=== PATIENT | female | born 1985 | race Caucasian/White ===

== ENCOUNTER 2018-04-28 00:46 | Inpatient (IN) | payer BC ==
[2018-04-28 01:25] VITALS: BMI 26.8
[2018-04-28] MEDS ORDERED: Penicillin G Potassium 5 MILL.UNITS VIAL ONE (01:44)
[2018-04-28] MEDS ORDERED: Promethazine HCl 25 MG/ML VIAL IM PRN ×2 (01:50→02:46)
[2018-04-28] MEDS ORDERED: Acetaminophen 500 MG TAB PO PRN (01:50)
[2018-04-28] MEDS ORDERED: Ondansetron HCl/PF 4 MG/2 ML Vial IVP PRN ×3 (01:50→10:24)
[2018-04-28] MEDS ORDERED: Butorphanol Tartrate 1 MG/ML VIAL SLOW IVP PRN (01:50)
[2018-04-28] MEDS: Lactated Ringer's 1,000 ML IV SCH ×2 (01:55→05:31)
[2018-04-28] MEDS ORDERED: Penicillin G Potassium 5 MILL.UNITS in Sodium Chloride 0.9% 100 ML IVPB SCH (02:00)
[2018-04-28] MEDS ORDERED: Methylergonovine 0.2 MG/ML VIAL IM PRN (02:00)
[2018-04-28] MEDS ORDERED: Carboprost 250 MCG/ML AMP IM PRN (02:00)
[2018-04-28] MEDS ORDERED: Ibuprofen 800 MG TAB PO PRN (02:00)
[2018-04-28] MEDS ORDERED: Lidocaine 1% (PF) 30 ML VIAL SC PRN (02:00)
[2018-04-28] MEDS ORDERED: NS w/ Oxytocin 10 units 500 ML IV SCH ×2 (02:00)
[2018-04-28] MEDS ORDERED: HYDROcodone/Acetaminophen 5/325 mg Tablet PO PRN (02:00)
[2018-04-28] MEDS ORDERED: Misoprostol 200 MCG TAB RC PRN (02:00)
[2018-04-28 02:19] LABS: Hemoglobin 13.1 g/dL (12.0-16.0); Mean Corpuscular HGB CONC 36.2 g/dL (32.0-36.0); Mean Corpuscular Hemoglobin 33.8 pg (27.0-31.0); Mean Corpuscular Volume 93.6 fL (78.0-98.0); Mean Platelet Volume 7.4 fL (7.4-10.4); Platelet Count 165 thou/uL (130-400); Red Blood Cell (RBC) Count 3.88 mill/uL (4.20-5.40); White Blood Cell (WBC) Count 9.5 thou/uL (4.8-10.8)
[2018-04-28] MEDS ORDERED: Lidocaine HCl/Epinephrine 5 ML AMPUL IJ ONE (02:28)
[2018-04-28] MEDS ORDERED: Lidocaine 1% (PF) 30 ML VIAL ONE (02:28)
[2018-04-28] MEDS ORDERED: Bupivacaine 0.5% 20 ML, fentaNYL Citrate/PF 400 MCG in Sodium Chloride 0.9% 72 ML EPIDURAL SCH (02:30)
[2018-04-28] MEDS ORDERED: DISCONTINUE ALL PREVIOUS NARCOTICS FS SCH (02:30)
[2018-04-28] MEDS ORDERED: Acetaminophen 325 MG TAB PO PRN (02:46)
[2018-04-28] MEDS ORDERED: diphenhydrAMINE 50 MG/ML VIAL IVP PRN (02:46)
[2018-04-28] MEDS ORDERED: Naloxone HCl 0.4 mg/ml Vial IVP PRN ×2 (02:46)
[2018-04-28] MEDS ORDERED: Lactated Ringer's 500 ML IV PRN (02:46)
[2018-04-28] MEDS ORDERED: ePHEDrine/0.9% NaCl/PF SYRINGE 50 mg/10 ml SLOW IVP PRN (02:46)
[2018-04-28] MEDS ORDERED: Eucerin (Mineral Oil/Petrolatum,White) 30 gm Jar TOP PRN (02:46)
[2018-04-28] MEDS ORDERED: fentaNYL Citrate/PF 400 MCG, Bupivacaine 0.5% 20 ML in Sodium Chloride 0.9% 72 ML EPIDURAL SCH (03:00)
[2018-04-28] MEDS ORDERED: Communication Order-Pharmacy FS SCH (03:00)
[2018-04-28 03:01] LABS: HBSAg Index 0.19 S/CO (0-0.99); HIV (1/2) Antibody/Antigen Non-Reactive (NonReactive); HIV 1/2 INDEX 0.06 S/CO (<1.00); Hep B Surf Ag Non-Reactive S/CO (NonReactive)
[2018-04-28 05:02] LABS: Syphilis Antibody Nonreactive (Nonreactive); Syphilis Antibody Index 0.06 S/CO (<1.00 Non-Reactive)
[2018-04-28] MEDS ORDERED: Penicillin G 2.5 MILL.units 50 ML ONE (05:27)
[2018-04-28] MEDS ORDERED: Penicillin G Potassium 2.5 MILL.UNITS in Sodium Chloride 0.9% 100 ML IVPB SCH (06:00)
[2018-04-28 06:02] LABS: Glucose 80 mg/dL (70-105)
[2018-04-28] MEDS: NS / Oxytocin 40 units/1000ml 1,000 ML IV SCH ×2 (08:05→10:04)
--- NOTE | 2018-04-28 09:50 | PDOC.LDHP ---
Labor and Delivery H&P Chief complaint: contractions HPI: 32yo at 39w1d c/o painful contractions. Current gestational age (weeks): 39 Due date: 05/04/18 Dating criteria: last menstrual period Grav: 2 Para: 1 Current complications: gestational diabetes (diet controlled) Abnormal US findings: No Past Medical History: h/o HSV on valtrex ppx Current medications: pre- vitamins, other (valtrex 500 bid) Previous surgical history: other (wisdom teeth) Allergies/Adverse Reactions: Allergies Allergy/AdvReac Type Severity Reaction Status Date / Time No Known Drug Allergies Allergy Verified 04/28/18 01:14 Social history: none - Physical Exam Vital signs reviewed and normal: yes General: NAD Heart: RRR Lungs: CTAB Abdomen: gravid Extremeties: no edema FHT: category 1 [place] contractions every: 3min - Vaginal Exam cm dilated: 10 Effacement: 100% Station: 2+ - OB Labs Blood type: A RH: positive Antibody Screen: negative HIV: negative RPR: negative HEPSAg: negative 1 hour GCT: positive 3 hour GTT: positive GBS: positive Urine drug screen: not done Rubella: immune - Assessment L&D Assessment: term patient in labor - Plan Plan: admit to L&D, labor augmentation if indicated, GBS antibiotic prophylaxis , informed consent obtained, anesthesia consult for pain management -: No HSV lesions on exam or prodromal sx.
--- NOTE | 2018-04-28 09:50 | PDOC.OPDEL ---
OB Operative/Delivery Note Delivery Dr/Surgeon: Dionne Assist: n/a Pre-Delivery Diagnosis: active labor Procedure/Post Delivery Dx: spontaneous vaginal delivery Weeks gestation: 39 Anesthesia: epidural - Findings A Sex: male - 1 min: 9 - 5 min: 9 - Additional Findings/Plan Placenta delivered: spontaneous Repaired Obstetrical Laceration: none Estimated blood loss: normal, qbl pending Post delivery plan: routine recovery
[2018-04-28] MEDS ORDERED: NS / Oxytocin 40 units/1000ml 1,000 ML IV SCH (10:24)
[2018-04-28] MEDS ORDERED: Acetaminophen/Codeine 30-300mg Tablet PO PRN ×2 (10:24)
[2018-04-28] MEDS ORDERED: Bisacodyl 10 MG SUPP PR PRN (10:24)
[2018-04-28] MEDS ORDERED: Milk Of Magnesia 30 ML UDCUP PO PRN (10:24)
[2018-04-28] MEDS ORDERED: Adacel (T-DAP) 0.5 ML VIAL IM ONE (10:24)
[2018-04-28] MEDS ORDERED: Lanolin Ointment 7 GM TUBE TOP PRN (10:24)
[2018-04-28] MEDS ORDERED: diphenhydrAMINE 25 MG CAP PO PRN (10:24)
[2018-04-28] MEDS ORDERED: Benzocaine/Menthol 20-0.5% 60 ML CAN TOP PRN (10:24)
[2018-04-28] MEDS ORDERED: Preparation H Ointment 28 GM TUBE PR PRN (10:24)
[2018-04-28] MEDS: Ibuprofen 800 MG TAB PO SCH ×2 (13:38→21:40)
[2018-04-28] MEDS: Ferrous Sulfate 325 MG TAB PO SCH (18:34)
[2018-04-28] MEDS: Docusate Calcium (SURFAK) 240 MG CAP PO SCH (21:40)
[2018-04-29] MEDS: Ibuprofen 800 MG TAB PO SCH ×2 (05:17→14:10)
[2018-04-29] MEDS: Ferrous Sulfate 325 MG TAB PO SCH ×2 (08:47→17:54)
[2018-04-29 08:48] VITALS: BP 99/54; TEMP 97.9
[2018-04-29] MEDS: Docusate Calcium (SURFAK) 240 MG CAP PO SCH (08:48)
[2018-04-29] MEDS ORDERED: Prenatal Vitamin 1 TAB PO SCH (09:00)
--- NOTE | 2018-04-29 11:32 | PDOC.PP ---
Post Progress Note Post Day #: 1 PO intake tolerated: yes Flatus: yes Ambulation: yes Vital Signs (12 hours) Temp Pulse Resp BP 04/29/18 08:46 97.9 F 77 20 99/54 L 04/29/18 07:40 97.9 F 77 20 04/29/18 05:10 98.0 F 73 16 101/63 04/29/18 02:12 97.8 F 85 16 106/51 L Weight Weight 142 lb - Physical Examination General: NAD Cardiovascular: RRR Respiratory: non-labored breathing Abdominal: no distention Fundus firm & at: umb-2 Skin: no rash Psychiatric: normal affect Result Diagrams: 04/28/18 01:57 04/28/18 01:57 Additional Labs: Post Labs Blood Type A POSITIVE 04/28/18 01:57 Hep Bs Antigen Non-Reactive S/CO (NonReactive) 04/28/18 01:57 - Assessment/Plan PPD1 s/p TSVD VSSAF Doing well lochia appropriate Breastfeeeding Rh pos Rimm DC home FU 6 wk
== END 2018-04-29 20:24 | disposition home or self-care (01) | DRG 775 ==
LOC: L&D/OP 00:46 → L&D 02:24 → 3SW 10:55
PROVIDERS: ADMIT Student in an Organized Health Care Education/Training Program; ATTEND Student in an Organized Health Care Education/Training Program
PROC: 10E0XZZ Delivery of Products of Conception, External Approach (ICD-10-PCS; principal; 2018-04-28)
DX: O24.420 Gestational diabetes mellitus in childbirth, diet controlled (principal); O99.824 Streptococcus B carrier state complicating childbirth; Z3A.39 39 weeks gestation of pregnancy; Z37.0 Single live birth
CPT/HCPCS: 36415; 51702; 82947; 85027; 86780; 86850; 86900; 86901; 87340; 87389; 99285; J2001; J2405; J2540; J3010; J3490; J7050

== ENCOUNTER 2019-07-21 17:07 | Inpatient (IN) | payer BC ==
[~2019-07-21 17:07] MED LIST: Bupivacaine 0.25% HCL 30 ML VIAL ONE
[2019-07-21] MEDS ORDERED: Ibuprofen 800 MG TAB PO PRN (17:42)
[2019-07-21] MEDS ORDERED: Lidocaine 1% (PF) 30 ML VIAL SC PRN (17:42)
[2019-07-21] MEDS ORDERED: HYDROcodone/Acetaminophen 5/325 mg Tablet PO PRN ×4 (17:42→23:07)
[2019-07-21] MEDS ORDERED: hydrALAZINE 20 MG/ML VIAL SLOW IVP PRN ×2 (17:42→23:07)
[2019-07-21] MEDS ORDERED: Promethazine HCl 25 MG/ML VIAL IM PRN ×2 (17:42→18:57)
[2019-07-21] MEDS ORDERED: Ondansetron PF 4 MG/2 ML Vial IVP PRN ×2 (17:42→18:57)
[2019-07-21] MEDS ORDERED: NS / Oxytocin 40 units/1000ml 1,000 ML IV PRN (17:42)
[2019-07-21] MEDS ORDERED: Lactated Ringer's 1,000 ML IV SCH (17:45)
--- NOTE | 2019-07-21 17:45 | PDOC.EVN ---
Event Note - Event Note Event Note: JUDE Chowdhury Asked to place orders for admission for active labor on behalf of admitting physician. Courtesy orders placed. I did not see the patient.
[2019-07-21 17:51] VITALS: BMI 29.5
[2019-07-21 18:05] LABS: Hemoglobin 13.1 g/dL (12.0-16.0); Mean Corpuscular Hemoglobin 31.8 pg (27.0-31.0); Mean Platelet Volume 7.9 fL (7.4-10.4); Platelet Count 168 thou/uL (130-400); RBC Distribution Width 14.1 % (11.5-14.5); Red Blood Cell (RBC) Count 4.11 mill/uL (4.20-5.40); White Blood Cell (WBC) Count 7.8 thou/uL (4.8-10.8)
[2019-07-21] MEDS ORDERED: Fentanyl 4 mcg/Bup 0.1% Cadd 100 ML ONE (18:24)
[2019-07-21 18:52] LABS: HBSAg Index 0.17 S/CO (0-0.99); HIV (1/2) Antibody/Antigen Non-Reactive (NonReactive); HIV 1/2 INDEX 0.13 S/CO (<1.00); Hep B Surf Ag Non-Reactive S/CO (NonReactive); Syphilis Antibody Nonreactive (Nonreactive); Syphilis Antibody Index 0.07 S/CO (<1.00 Non-Reactive)
[2019-07-21] MEDS ORDERED: Naloxone HCl 0.4 mg/ml Vial IVP PRN ×2 (18:57)
[2019-07-21] MEDS ORDERED: ePHEDrine/0.9% NaCl/PF SYRINGE 50 mg/10 ml SLOW IVP PRN (18:57)
[2019-07-21] MEDS ORDERED: diphenhydrAMINE 50 MG/ML VIAL IVP PRN (18:57)
[2019-07-21] MEDS ORDERED: Lactated Ringer's 500 ML IV PRN (18:57)
[2019-07-21] MEDS ORDERED: Acetaminophen 325 MG TAB PO PRN (18:57)
[2019-07-21] MEDS ORDERED: Communication Order-Pharmacy FS SCH (19:00)
[2019-07-21] MEDS ORDERED: Fentanyl 4 mcg/Bupivacaine 0.1% Cassette 100 ML EPIDURAL SCH (19:00)
--- NOTE | 2019-07-21 22:07 | PDOC.LDHP ---
Labor and Delivery H&P Chief complaint: contractions HPI: Patient arrived to hospital approximatly 1730 with complaints of contractions. Current gestational age (weeks): 38 (6) Due date: 07/29/19 Dating criteria: last menstrual period (verifed with CRL in the first trimester. ) Grav: 3 Para: 2 OB History Details: 2014 39 5.14 2017 39.1 7.5, gestation diabetes, HSV 2 Current complications: none Abnormal US findings: No Current medications: pre-mp vitamins, other (valtrex 500mg po qd) Previous surgical history: other (wisdom teeth extraction) Allergies/Adverse Reactions: Allergies Allergy/AdvReac Type Severity Reaction Status Date / Time No Known Drug Allergies Allergy Verified 07/21/19 17:59 Social history: none - Physical Exam Vital signs reviewed and normal: yes General: breathing through contractions Lungs: nonlabored breathing Abdomen: gravid FHT: category 1 - Vaginal Exam cm dilated: 7 Effacement: 50% Station: -1 - OB Labs Blood type: A RH: positive Antibody Screen: negative HIV: negative RPR: negative HEPSAg: negative 1 hour GCT: positive GBS: negative Urine drug screen: negative Rubella: immune - Assessment L&D Assessment: term patient in labor - Plan Plan: admit to L&D
[2019-07-21] MEDS ORDERED: Misoprostol 200 MCG TAB VAG PRN (23:07)
[2019-07-21] MEDS ORDERED: Bisacodyl 10 MG SUPP PR PRN (23:07)
[2019-07-21] MEDS ORDERED: Methylergonovine 0.2 MG/ML VIAL IM PRN (23:07)
[2019-07-21] MEDS ORDERED: Benzocaine-Menthol 82.5 ML CAN TOP PRN (23:07)
[2019-07-21] MEDS ORDERED: Milk Of Magnesia 30 ML UDCUP PO PRN (23:07)
--- NOTE | 2019-07-21 23:07 | PDOC.OPDEL ---
OB Operative/Delivery Note Delivery Dr/Surgeon: Hans Lozada CNM Pre-Delivery Diagnosis: active labor Procedure/Post Delivery Dx: spontaneous vaginal delivery Weeks gestation: 38 (6 days) Anesthesia: epidural - Findings A Sex: female Weight: 7 lb 5 oz - 1 min: 8 - 5 min: 9 - Additional Findings/Plan Placenta delivered: spontaneous Repaired Obstetrical Laceration: none Estimated blood loss: 150mL Compilations/Other Findings: Severe vulvar vericosities. present. No hematomas present. Post delivery plan: routine recovery
[2019-07-21] MEDS ORDERED: NS / Oxytocin 40 units/1000ml 1,000 ML IV SCH (23:15)
--- NOTE | 2019-07-22 08:36 | PDOC.PP ---
Post Progress Note Post Day #: 1 Subjective: patient is doing ok. Trouble with painful . she also noticed a hard knot inside of her varicose vein on her right ankle. the back of her right leg and knee is also hurting. PO intake tolerated: yes Flatus: yes Ambulation: yes Weight Weight 156 lb - Physical Examination General: NAD Respiratory: non-labored breathing Abdominal: lochia (minimal) Deviation from normal: Large varicose veins, TTP RLE behind knee and thigh, suspected superficial Perineum: edema is resolving, varicosites less dilated Neurological: no gross focal deficits Psychiatric: A&Ox3, normal affect Result Diagrams: 07/21/19 17:55 Additional Labs: Post Labs Blood Type A POSITIVE 07/21/19 17:56 Hep Bs Antigen Non-Reactive S/CO (NonReactive) 07/21/19 17:55 (1) (spontaneous vaginal delivery) Code(s): O80 - ENCOUNTER FOR FULL-TERM UNCOMPLICATED DELIVERY Status: Acute (2) Varicosities of leg Code(s): I83.90 - ASYMPTOMATIC VARICOSE VEINS OF UNSPECIFIED LOWER EXTREMITY Status: Acute (3) Varicosities of vulva Code(s): I86.3 - VULVAL VARICES Status: Acute (4) Superficial varicosities Code(s): I83.90 - ASYMPTOMATIC VARICOSE VEINS OF UNSPECIFIED LOWER EXTREMITY Status: Acute - Assessment/Plan A: G3 now p3 sp following spontaneous labor. suspected superficial thrombosis of right lateral ankle P: bilateral doppler studies, stat to r/o DVT and verify suspected superficial thrombosis will consult with ob hospitalist and start anti-coagulation therapy if indicated by doppler
[2019-07-22] MEDS ORDERED: Adacel (T-DAP) 0.5 ML SYRINGE IM ONE ×2 (09:00→13:01)
[2019-07-22] MEDS ORDERED: Docusate Calcium (SURFAK) 240 MG CAP PO SCH (09:00)
[2019-07-22] MEDS: Ferrous Sulfate 325 MG TAB PO SCH ×3 (09:24→17:19)
[2019-07-22] MEDS: Ibuprofen 800 MG TAB PO SCH ×4 (09:25→19:44)
--- NOTE | 2019-07-22 10:51 | ULT ---
ULTRASOUND WITH DOPPLER DUPLEX VENOUS LOWER EXTREMITIES BILATERAL: 07/22/2019 HISTORY: A 33-year-old female with bilateral lower extremity pain and palpable masses. TECHNIQUE: Color flow Doppler, spectral waveform analysis of pulsed Doppler, and mcclain-scale imaging with reinaldo nicky and augmentation, were used to evaluate the bilateral common femoral, femoral, popliteal, packaging assembler ior tibial, and superficial femoral, veins; and the proximal portions of the profunda femoral and gre ater saphenous, veins. FINDINGS: There is normal compressibility, demonstration of blood flow by color Doppler and pulsed Doppler, and response to augmentation, in all interrogated veins. There are very tortuous, dilated, occluded superficial varicosities at the right lateral thigh and ri ght lateral knee, corresponding to the palpable lump and pain. At the region of palpable lump in the right lateral ankle, there is a well circumscribed, lentiform, superficial subcutaneous soft tissue mass measuring approximately 1.7 x 0.6 x 1.6 cm with mixed inter mediate and low echogenicity. Etiology is uncertain. No internal blood flow is demonstrated by Dopple r within this mass. IMPRESSION: 1. No deep vein thrombosis in the bilateral lower extremities. 2. Superficial thrombophlebitis at the lateral aspect of the right thigh and right knee. 3. Nonspecific superficial soft tissue mass at lateral right ankle. jnr POS: KO
[2019-07-22] MEDS ORDERED: Enoxaparin Sodium 40 MG/0.4 ML SYRINGE SC SCH (12:45)
[2019-07-22] MEDS ORDERED: HYDROcodone/Acetaminophen 5/325 mg Tablet PO PRN ×4 (12:55→13:01)
[2019-07-22] MEDS ORDERED: Lanolin Ointment 7 GM TUBE TOP PRN (13:01)
[2019-07-22] MEDS ORDERED: Milk Of Magnesia 30 ML UDCUP PO PRN (13:01)
[2019-07-22] MEDS ORDERED: Bisacodyl 10 MG SUPP PR PRN (13:01)
[2019-07-22] MEDS ORDERED: Benzocaine-Menthol 82.5 ML CAN TOP PRN (13:01)
[2019-07-22] MEDS ORDERED: NS / Oxytocin 40 units/1000ml 1,000 ML IV SCH (13:01)
[2019-07-22] MEDS ORDERED: hydrALAZINE 20 MG/ML VIAL SLOW IVP PRN (13:01)
[2019-07-22] MEDS ORDERED: Ondansetron PF 4 MG/2 ML Vial IVP PRN (13:01)
--- NOTE | 2019-07-22 14:45 | CON ---
DATE OF CONSULTATION: 07/22/2019 REFERRING PROVIDER: Batsheva Lozada CNM CHIEF COMPLAINT: Lower extremity pain with suspected blood clots. HISTORY OF PRESENT ILLNESS: The patient is a 33-year-old female, who is day 1 for an uncomplicated term spontaneous vaginal delivery. The patient's obstetric care has been complicated by varicosities. This morning, she has been reporting right-sided lower extremity pain in the area of her knee. There was some concern whether she may have a DVT, and RATINGS ANALYST was consulted to help with diagnosis and management. The patient denies any history of blood clots or any known family history of hypercoagulation. The patient does report she is adopted at age 9 and does not know much about her genetic history. The patient has had varicosities with her pregnancies, but has never had blood clots with them until today. The patient reports she is having pain, particularly on that right upper area that has gotten worse as the mornings progressed. PAST MEDICAL HISTORY: Gestational diabetes and genital herpes, on suppression. PAST SURGICAL HISTORY: Check tooth extraction. ALLERGIES: NO KNOWN DRUG ALLERGIES. MEDICATIONS: vitamins and Valtrex. SOCIAL HISTORY: Denies drug, alcohol, or tobacco use. REVIEW OF SYSTEMS: Denies any recent illness or previous history of blood clots. PHYSICAL EXAMINATION: VITAL SIGNS: Blood pressure 114/69, temperature 98.1, pulse is 74, respiratory rate of 20. GENERAL: She appears to be in no acute distress. She is alert and oriented, cooperative and pleasant to interact with. Head: Normocephalic and atraumatic. EXTREMITIES: Have varicosities, worse on the right side as there is a palpable varicosity that is firm and hard on the lateral aspect of her upper leg just proximal to the knee. It is tortuous, but measures approximately 7 to 8 cm, maybe several centimeters longer if it were straighten out. She also has a firmness in her right foot on the caudal portion on the superior aspect of the foot just in the proximal region to the right lateral malleolus. IMAGING STUDIES: Ultrasound demonstrates a superficial vein thrombosis and the superficial varicosities on the right lateral thigh and right lateral knee. There is no thrombosis in the foot, and there is no deep vein thrombosis in the bilateral common femoral, femoral, popliteal, posterior tibial, superficial femoral veins, and the proximal portions of the profunda femoral and the greater saphenous veins. ASSESSMENT AND PLAN: The patient is a 33-year-old female with superficial thrombophlebitis. Given the extent of this thrombosis being more than 7 to 8 cm in length and given the proximity to deeper vein structures, recommendations at this time are to be placed on Lovenox 40 mg daily for the next 45 days with a re-evaluation in 7 to 10 days for extension. I have discussed these findings with the patient and her . Their main concern at this time is cost, and we have involved Case Management to look at to identify in network pharmacies and their insurance and how Lovenox should be ordered for them. I have updated Ms. Batsheva Lozada with these recommendations. I have ordered Lovenox to be started this afternoon, and we will continue daily while she is here in the hospital. Job ID: [id number]
[2019-07-22] MEDS ORDERED: FLU VACC QS2019-20(6MOS UP)/PF 60 MCG/0.5 ML SYRINGE IM ONE (18:15)
[2019-07-22] MEDS: Docusate Calcium (SURFAK) 240 MG CAP PO SCH (21:38)
[2019-07-23] MEDS: Ibuprofen 800 MG TAB PO SCH (04:08)
[2019-07-23 08:08] VITALS: BP 122/79; TEMP 98.3
[2019-07-23] MEDS: Docusate Calcium (SURFAK) 240 MG CAP PO SCH (08:52)
[2019-07-23] MEDS: Ferrous Sulfate 325 MG TAB PO SCH (08:53)
[2019-07-23] MEDS ORDERED: Enoxaparin Sodium 40 MG/0.4 ML SYRINGE SC SCH ×2 (09:00)
[2019-07-23] MEDS ORDERED: Prenatal Vitamin 1 TAB PO SCH (09:00)
--- NOTE | 2019-07-23 09:03 | PDOC.PP ---
Post Progress Note Post Day #: 2 Subjective: Patient is having less pain in the right leg after starting lovenox and heat therapy. The ice packs made it hurt worse. She is having painful nipples with . she saw the science consultant. PO intake tolerated: yes Flatus: yes Ambulation: yes Vital Signs (12 hours) Temp Pulse Resp BP Pulse Ox 07/23/19 07:51 98.3 F 66 18 122/79 98 07/23/19 04:08 97.6 F 78 16 127/86 07/23/19 01:00 97.8 F 65 16 99/56 L Weight Weight 156 lb - Physical Examination General: NAD Respiratory: non-labored breathing Abdominal: lochia, no distention Extremities: negative homans (B) Deviation from normal: Varicosities. Tortuous superficial thrombosis in posterior leg. Skin: no rash Neurological: no gross focal deficits Psychiatric: A&Ox3, normal affect Result Diagrams: 07/21/19 17:55 Additional Labs: Post Labs Blood Type A POSITIVE 07/21/19 17:56 Hep Bs Antigen Non-Reactive S/CO (NonReactive) 07/21/19 17:55 (1) (spontaneous vaginal delivery) Code(s): O80 - ENCOUNTER FOR FULL-TERM UNCOMPLICATED DELIVERY Status: Acute (2) Varicosities of leg Code(s): I83.90 - ASYMPTOMATIC VARICOSE VEINS OF UNSPECIFIED LOWER EXTREMITY Status: Acute (3) Varicosities of vulva Code(s): I86.3 - VULVAL VARICES Status: Acute (4) Superficial varicosities Code(s): I83.90 - ASYMPTOMATIC VARICOSE VEINS OF UNSPECIFIED LOWER EXTREMITY Status: Acute - Assessment/Plan A: G3 now p3 s/p . Large superficial tortuous thrombosis on right posterior leg at junction of knee and thigh P: continue Lovenox therapy for 45 days Follow up doppler studies to evaluate for extension in 7 day, then follow up with Courtney Carranza in office 6 week visit.
== END 2019-07-23 12:20 | disposition home or self-care (01) | DRG 806 ==
LOC: L&D/OP 17:07 → L&D 18:02 → 3SW 07-22 07:31
PROVIDERS: ADMIT Obstetrics & Gynecology; ATTEND Obstetrics & Gynecology
PROC: 10E0XZZ Delivery of Products of Conception, External Approach (ICD-10-PCS; principal; 2019-07-22)
DX: O22.13 Genital varices in pregnancy, third trimester (principal); O22.23 Superficial thrombophlebitis in pregnancy, third trimester; Z37.0 Single live birth; O98.52 Other viral diseases complicating childbirth; Z3A.38 38 weeks gestation of pregnancy; A60.00 Herpesviral infection of urogenital system, unspecified; I80.01 Phlebitis and thrombophlebitis of superficial vessels of right lower extremity; Z79.899 Other long term (current) drug therapy
CPT/HCPCS: 51702; 85027; 86780; 86850; 86900; 86901; 87340; 87389; 93970; 99285; J1650; S0020

== ENCOUNTER 2019-07-31 07:54 | Outpatient (CLI) | payer BC ==
--- NOTE | 2019-07-31 11:00 | ULT ---
ULTRASOUND WITH DOPPLER DUPLEX VENOUS LOWER EXTREMITY RIGHT: DATE: 07/31/2019. HISTORY: A 33-year-old female with right lower extremity pain. COMPARISON: 07/22/2019. TECHNIQUE: Color flow Doppler, spectral waveform analysis of pulsed Doppler, and mcclain-scale imaging with reinaldo nicky and augmentation, were used to evaluate the right common femoral, femoral, popliteal, posterior tibial, and superficial femoral, veins; and the proximal portions of the profunda femoral and greater saphenous, veins. FINDINGS: There is normal compressibility, demonstration of blood flow by color Doppler and pulsed Doppler, and response to augmentation, in all interrogated deep veins. The very tortuous, dilated, occluded superficial varicosities at the lateral aspect of the right thig h and lateral aspect of the right knee, are again noted (no blood flow within the lumen). At the lateral aspect of the ankle, in the region of the palpable lump, the solid, nonvascular mass r emains. It has not significantly changed. There has been no interval change overall. IMPRESSION: 1. No deep vein thrombosis in the right lower extremity. 2. Superficial thrombophlebitis at lateral aspect of the right thigh and right knee. 3. Nonspecific superficial soft tissue mass at the lateral right ankle. heriberto [] POS: YANG
== END 2019-07-31 07:55 | disposition home or self-care (01) ==
LOC: ULT 07:54
PROVIDERS: ATTEND Advanced Practice Midwife
DX: I82.401 Acute embolism and thrombosis of unspecified deep veins of right lower extremity (principal)